=== PATIENT | male | born 1970 | race Caucasian/White ===

== ENCOUNTER 2017-04-20 14:30 | Emergency (ER) | payer SELFPAY ==
[2017-04-20 14:39] VITALS: BP 133/90; PULSE 81; TEMP 98.7; BMI 28.3
[2017-04-20] MEDS ORDERED: LIDOCAINE HCL 1%, 10 MG/ML (20ML VIAL) ONE (15:18)
[2017-04-20] MEDS ORDERED: IBUPROFEN 400 MG TABLET (FP) PO ONE ×2 (15:43→15:49)
[2017-04-20] MEDS ORDERED: DIPHTH,PERTUSS(ACELL),TET 0.5 ML DISP.SYRIN IM ONE (15:44)
--- NOTE | 2017-04-20 15:48 | PDOC ---
History of Present Illness - General History Source: Patient Exam Limitations: No Limitations - History of Present Illness Initial Comments: The patient is a 46 yo M with a past medical history significant for gastritis who presents with L knee laceration. The patient is frisian speaking. The patient states he cut his knee on a ski base trimmer. The patient states he is unaware of when his last tetanus shot was. <Liliana Judge - Last Filed: 04/20/17 16:14> <Brice Barker - Last Filed: 04/20/17 17:11> - General Chief Complaint: Injury Stated Complaint: LACERATION ABOVE LEFT KNEE Time Seen by Provider: 04/20/17 14:48 Past History <Liliana Judge - Last Filed: 04/20/17 16:14> - Past Medical History Other medical history: DENIES - Psycho/Social/Smoking Cessation Hx Anxiety: No Suicidal Ideation: No Smoking History: Never smoked Have you smoked in the past 12 months: No Information on smoking cessation initiated: No <Brice Barker - Last Filed: 04/20/17 17:11> - Past Medical History Allergies/Adverse Reactions: Allergies Allergy/AdvReac Type Severity Reaction Status Date / Time No Known Allergies Allergy Verified 04/20/17 14:35 Home Medications: Ambulatory Orders Ibuprofen 600 mg PO Q4HWA PRN #15 tablet 04/20/17 Review of Systems - Review of Systems Able to Perform ROS?: Yes Comments:: CONSTITUTIONAL: Absent: fever, no chills, no fatigue EYES: Absent: visual changes ENT: Absent: ear pain, no sore throat CARDIOVASCULAR: Absent: chest pain, no palpitations RESPIRATORY: Absent: cough, no SOB GI: Absent: abdominal pain, no nausea, no vomiting, no constipation, no diarrhea GENITOURINARY: Absent: dysuria, no frequency, no hematuria MUSKULOSKELETAL: +R knee laceration Absent: back pain, no arthralgia, no myalgia SKIN: Absent: rash <Liliana Judge - Last Filed: 04/20/17 16:14> *Physical Exam - Vital Signs Last Vital Signs Temp Pulse Resp BP Pulse Ox 98.7 F 81 18 133/90 96 04/20/17 14:30 04/20/17 14:30 04/20/17 14:30 04/20/17 14:30 04/20/17 14:30 - Physical Exam Comments: GENERAL: Well-appearing, well-nourished. No apparent distress. HEENT: Normocephalic, atraumatic. PERRL, EOM intact. CARDIOVASCULAR: Normal S1, S2. Regular rate and rhythm. PULMONARY: Clear to auscultation bilaterally. ABDOMEN: Soft, non-distended, non-tender. EXTREMITIES: Normal ROM in all four extremities. No gross deformities. SKIN: Warm, dry. No rash. 3.5 cm superficial laceration of patella. It did not appear to penetrate the bursa. There was no swelling, effusion or deformity of the knee. Distal pulses were intact. No distal sensory/motor deficit. No other injuries were sustained. NEUROLOGICAL: No focal neurological deficits. <Liliana Judge - Last Filed: 04/20/17 16:14> - Vital Signs Last Vital Signs Temp Pulse Resp BP Pulse Ox 98.7 F 81 18 133/90 96 04/20/17 14:30 04/20/17 14:30 04/20/17 14:30 04/20/17 14:30 04/20/17 14:30 <Brice Barker - Last Filed: 04/20/17 17:11> ED Treatment Course - Medications Given in the ED: ED Medications Discontinued Medications Generic Name Dose Route Start Last Admin Trade Name Freq PRN Reason Stop Dose Admin Diphtheria/Tetanus/Acell Pertussis 0.5 ml 04/20/17 15:44 04/20/17 15:50 Boostrix - IM 04/20/17 15:45 0.5 ml ONCE ONE Administration Ibuprofen 800 mg 04/20/17 15:43 04/20/17 15:50 Motrin - PO 04/20/17 15:44 800 mg ONCE ONE Administration <Liliana Judge - Last Filed: 04/20/17 16:14> Progress Note - Progress Note Progress Note: The patient's physical exam is negative except for superficial laceration over the patella. No bursal penetration was noted. Neurovascular intact Procedure note: Repair of laceration The skin was prepped with Betadine, local anesthesia with 1% lidocaine plain with good results Thoroughly scrubbed and irrigated with normal saline. Wound margins trimmed with resultant 3.5 cm regular laceration repaired with interrupted 4-0 nylon suture. Bacitracin, Telfa, 4 x 4, and Chanelle were applied. Tetanus immunization was given and the patient was discharged with wound care instructions in Dutch, to follow-up in 10 days for suture removal or to recheck immediately if there are sign of infection fully ambulatory and in no pain or other distress upon discharge to follow-up as directed <Brice Barker - Last Filed: 04/20/17 17:11> *DC/Admit/Observation/Transfer - Attestations Scribe Attestion: Documentation prepared by Liliana Judge, acting as medical billing clerk for Brice Alcaraz MD/DO. <Liliana Judge - Last Filed: 04/20/17 16:14> - Discharge Dispostion Admit: No <Brice Barker - Last Filed: 04/20/17 17:11> Diagnosis at time of Disposition: Laceration - Discharge Dispostion Disposition: HOME Condition at time of disposition: Improved - Prescriptions Prescriptions: Ibuprofen 600 mg PO Q4HWA PRN #15 tablet PRN Reason: Pain - Patient Instructions Printed Discharge Instructions: DI for Laceration Repair Additional Instructions: Keep clean and dry. Change bandage and apply antibiotic ointment. Keep covered. Return for suture removal in 10 days. Recheck sooner if there is sign of infection, including increased pain, swelling, redness, warmth, or drainage of discolored fluid. Print Language: EMIRATI - Post Discharge Activity Work/School Note: Back to Work
== END 2017-04-20 15:59 | disposition home or self-care (01) ==
LOC: FER 14:30
CPT/HCPCS: 90715; 99283-25

== ENCOUNTER 2017-04-28 12:30 | Emergency (ER) | payer SELFPAY ==
[2017-04-28 12:42] VITALS: BP 147/87; PULSE 65; TEMP 97.9; BMI 28.2
--- NOTE | 2017-04-28 12:48 | PDOC ---
History of Present Illness - General Chief Complaint: Suture/Staple Removal(Here) Stated Complaint: SUTURE REMOVAL FROM LEFT KNEE Time Seen by Provider: 04/28/17 12:46 History Source: Patient Exam Limitations: Language Barrier (Kyrgyz) - History of Present Illness Initial Comments: 04/28/17 12:47 46 year old male The patient is a 46 year old male presenting for removal of sutures from a left knee laceration placed 9 days ago. Patient denies any pain, redness, swelling or discharge from the wound. Denies fever, chills, sob, cp The patient is belarusian speaking. 04/28/17 13:16 Past History - Past Medical History Allergies/Adverse Reactions: Allergies Allergy/AdvReac Type Severity Reaction Status Date / Time No Known Allergies Allergy Verified 04/20/17 14:35 Home Medications: Ambulatory Orders Ibuprofen 600 mg PO Q4HWA PRN #15 tablet 04/20/17 - Psycho/Social/Smoking Cessation Hx Anxiety: No Suicidal Ideation: No Smoking History: Never smoked Have you smoked in the past 12 months: No Hx Alcohol Use: No Drug/Substance Use Hx: No Substance Use Type: None Review of Systems - Review of Systems Able to Perform ROS?: Yes Comments:: 04/28/17 13:16 Denies fever, chills, shortness of breath, chest pain, abdominal pain denies pain, redness, swelling and discharge from the wound Is the patient limited Belarusian proficient: Yes *Physical Exam - Vital Signs Last Vital Signs Temp Pulse Resp BP Pulse Ox 97.9 F 65 15 147/87 99 04/28/17 12:35 04/28/17 12:35 04/28/17 12:35 04/28/17 12:35 04/28/17 12:35 Medical Decision Making - Medical Decision Making 04/28/17 12:47 46 year old male presenting for suture removal Removed 4x sutures from left thigh above knee Wound appeared well healed with no bleeding, tenderness, erythema, edema, or discharge Cleaned with alcohol swab and covered with adhesive bandage Patient instructed to keep the wound clean and dry and avoid excess stress to the muscle. 04/28/17 13:04 *DC/Admit/Observation/Transfer Diagnosis at time of Disposition: Visit for suture removal - Discharge Dispostion Disposition: HOME Condition at time of disposition: Stable Admit: No - Patient Instructions Printed Discharge Instructions: DI for Suture Removal, DI for Surgical Site Infection Additional Instructions: Thank you for trusting us with your care today. I hope you were satisfied with the care you received. Your laceration appears to be healing appropriately and all the sutures were removed today. You should follow up with your primary care physician in the next 1 to 2 weeks for a final examination. A small amount or bleeding or discharge from the wound can be normal, however, please return to the emergency department if the wound becomes painful, red or there is any significant bleeding or discharge from the wound or if the discharge has a foul smell or looks like pus. You should also return to the emergency department if you develop any new or concerning symptoms such as fever or confusion. If you are not able to wake him, you should dial 911 immediately. Print Language: BULGARIAN - Attestations Physician Attestion: 04/28/17 13:15 I, Dr. Joey Wheeler, attest that this document has been prepared under my direction and personally reviewed by me in its entirety. I further attest, that it accurately reflects all work, treatment, procedures and medical decision -making performed by me.
--- NOTE | 2017-04-28 13:22 | PDOC ---
Attending Attestation - Resident Resident Name: Joey Wheeler - ED Attending Attestation I have performed the following: I have examined & evaluated the patient, The case was reviewed & discussed with the resident, I agree w/resident's findings & plan, Exceptions are as noted - HPI HPI: 04/28/17 13:16 46yo M presents for suture removal from left distal thigh wound. Pt reports cutting his thigh with a hand candy cutter 9 days ago. Denies any redness, erythema or discharge from wound. Otherwise feels well, denies fevers, chills, chest pain , sob, abd pain, N/V/D, LE edema, dysuria. - Physicial Exam PE: 04/28/17 13:18 GENERAL: Awake, alert, and fully oriented, in no acute distress HEAD: No signs of trauma EYES: PERRLA, EOMI, sclera anicteric, conjunctiva clear ENT: Auricles normal inspection, hearing grossly normal, nares patent, oropharynx clear without exudates. Moist mucosa NECK: Normal ROM, supple, no lymphadenopathy, JVD, or masses LUNGS: Breath sounds equal, clear to auscultation bilaterally. No wheezes, and no crackles HEART: Regular rate and rhythm, normal S1 and S2, no murmurs, rubs or gallops ABDOMEN: Soft, nontender, normoactive bowel sounds. No guarding, no rebound. No masses EXTREMITIES: Normal range of motion, no edema. No clubbing or cyanosis. No cords, erythema, or tenderness NEUROLOGICAL: Normal speech, cranial nerves intact, negative pronator drift, 5/ 5 strength in all 4 extremities, normal sensation to light touch in all 4 extremities, normal cerebellar exam, normal gait, normal reflexes and tone SKIN: Warm, Dry, normal turgor, no rashes or lesions noted. Left distal thigh with [address], appear clean, dry and intact. [address] Wheeler under my direct supervision with no complications. Wound is well healed with no erythema, drainage or induration - Medical Decision Making 04/28/17 13:20 46yo M presents for suture removal. Sutures removed without complication. -DC
== END 2017-04-28 13:20 | disposition home or self-care (01) ==
LOC: FER 12:30
DX: Z48.02 Encounter for removal of sutures (principal)
CPT/HCPCS: 99281-25